=== PATIENT | male | born 1955 | race African-American/Black ===

== ENCOUNTER 2018-04-29 18:45 | Inpatient (IN) | payer OTHER ==
[~2018-04-29] VITALS: Ht 170.2 cm; Wt 64.4 kg
--- NOTE | 2018-04-29 19:27 | NUR ---
MS RN OPENING NOTES: RECEIVED PT ON ROOM AIR AND IS TOLERATING WELL. PT IS A/OX4. PT IN MILD DISTRESS COMPLAINING OF PAIN AT THIS TIME. PT JUST ARRIVED FROM [facility]. PT HAS IV ON L THIGH. BED ALARM ACTIVATED. BED KEPT IN LOW, LOCKED POSITION, AND SIDE RAILS X 2UP. WILL CONTINUE TO MONITOR PT.
--- NOTE | 2018-04-29 19:37 | NUR ---
MS RN NOTES: PRO BUENO AT BEDSIDE.
[2018-04-29] MEDS ORDERED: OMEP20CA10 PO (19:52)
[2018-04-29] MEDS ORDERED: FOLI1TAB16 PO (19:52)
[2018-04-29] MEDS ORDERED: DESO1TAB9 PO (19:52)
[2018-04-29] MEDS ORDERED: THIA100T88 PO (19:52)
[2018-04-29] MEDS ORDERED: MULT1TAB73 PO (19:52)
[2018-04-29] MEDS ORDERED: BENA10TA9 PO (19:52)
[2018-04-29] MEDS ORDERED: GABA-534 PO (19:52)
[2018-04-29] MEDS ORDERED: INSU100V7 SQ (19:52)
[2018-04-29] MEDS ORDERED: AMLO5TAB9 PO (19:52)
[2018-04-29 20:00] VITALS: BP 155/74
[2018-04-29] MEDS ORDERED: Z GUARD REMEDY 2 OZ OINT TP PRN (20:00)
[2018-04-29] MEDS ORDERED: MAGNESIUM HYDROXIDE 30 ML UDC PO PRN (20:00)
[2018-04-29] MEDS ORDERED: DEXTROSE 50%-WATER 50 ML DISP.SYRIN IV PRN (20:00)
[2018-04-29] MEDS ORDERED: MORPHINE SULFATE INJ 2 MG/ML DISP.SYRIN IV PRN (20:00)
[2018-04-29] MEDS ORDERED: ONDANSETRON HCL/PF 4 MG/2 ML VIAL IVP PRN (20:00)
--- NOTE | 2018-04-29 20:49 | NUR ---
MS RN NOTES: SPOKE WITH DR. QUINTERO. INFORMED HIM THAT UNABLE TO PULL OUT MORPHINE D/T OUT OF STOCK. GOT ALTERNATIVE ORDER WELL FOR DILAUDID 0.5MG IV Q4HR PRN FOR SEVERE PAIN.
[2018-04-29] MEDS: IV NS 0.9% 1,000 ML IV PRN (20:54)
--- NOTE | 2018-04-29 20:55 | NUR ---
RN NOTES: CONTACTED LAB TO ASSISTANT MEDIA BUYER MRSA SWAB SPECIMEN
[2018-04-29] MEDS: HYDROCODONE/APAP 5/325MG 1 EACH TABLET PO PRN (20:56)
[2018-04-29] MEDS ORDERED: HYDROMORPHONE 1 MG/1 ML DISP.SYRIN IV PRN (21:00)
--- NOTE | 2018-04-29 21:00 | NUR ---
MS RN NOTES: PT COMPLAINING OF R KNEE AND LOWER BACK PAIN. PT WAS ADMINISTERED NORCO 5 PO. WILL CONTINUE TO MONITOR PT.
[2018-04-29] MEDS: BLOOD SUGAR DIAGNOSTIC 1 EACH STRIP IN SCH (21:24)
[2018-04-29] MEDS: INSULIN REGULAR, HUMAN 100 UNIT/ML 3 ML VIAL SQ PRN (21:26)
--- NOTE | 2018-04-29 21:30 | NUR ---
MS RN NOTES: BLOOD SUGAR WAS 189. 3 UNITS OF INSULIN WAS ADMINISTERED. SNACKS PROVIDED AT BEDSIDE. WILL CONTINUE TO MONITOR,
[2018-04-29] MEDS: HYDROMORPHONE INJ 2 MG/ML DISP.SYRIN IV PRN (22:13)
--- NOTE | 2018-04-29 22:17 | NUR ---
MS RN NOTES: PT STILL COMPLAINING OF 8/10 RIGHT LEG, BACK, AND NECK PAIN. PT WAS ADMINISTERED DILAUDID 0.5MG IV. WILL CONTINUE TO MONITOR PT.
[2018-04-30] VITALS (8 sets, daily range): BP systolic 120–176; BP diastolic 66–83
[2018-04-30] MEDS: HYDROCODONE/APAP 5/325MG 1 EACH TABLET PO PRN ×5 (01:24→21:26)
--- NOTE | 2018-04-30 01:27 | NUR ---
MS RN NOTES: PT COMPLAINING OF R KNEE AND LOWER BACK PAIN 12/02. PT WAS ADMINISTERED NORCO 5 PO. WILL CONTINUE TO MONITOR.
[2018-04-30] MEDS: ZOLPIDEM TARTRATE 5 MG TABLET PO PRN ×2 (01:54→20:38)
--- NOTE | 2018-04-30 01:55 | NUR ---
MS CHACHA NOTES: PT REQUESTING FOR SLEEPING AID. PT WANTS TO BE RELIEVED FROM THE PAIN HE IS HAVING IN HIS BACK, NECK, AND R KNEE/LEG. Addendum: 04/30/18 at 0156 by YANIRA GALEANO RN PT WAS ADMINISTERED AMBIEN 5MG PO. WILL CONTINUE TO MONITOR.
[2018-04-30] MEDS: HYDROMORPHONE INJ 2 MG/ML DISP.SYRIN IV PRN ×6 (02:33→23:35)
--- NOTE | 2018-04-30 02:34 | NUR ---
MS RN NOTES: AFTER BEING REPOSITIONED, PT SAID HIS PAIN CAME BACK 8/10. PT COMPLAINING OF LOWER BACK, NECK, AND R KNEE/LEG PAIN. PT WAS ADMINISTERED DILAUDID 0.5MG VIA IV. WILL CONTINUE TO MONITOR.
[2018-04-30] MEDS: BLOOD SUGAR DIAGNOSTIC 1 EACH STRIP IN SCH ×4 (06:03→21:17)
--- NOTE | 2018-04-30 06:20 | NUR ---
MS RN CLOSING NOTES: ALL NEEDS WERE ATTENDED AND ANTICIPATED FOR. PT KEPT CLEAN, DRY, AND COMFORTABLE. PT ASLEEP AT THIS TIME. PT HAS IV ON L THIGH AND IS BEING INFUSED WITH IV NS AT 75ML/HR. BED ALARM ACTIVATED. PT TO BE ADMINISTERED 3 UNITS OF INSULIN FOR BLOOD SUGAR BEING 194 THIS AM. BED KEPT IN LOW, LOCKED POSITION, AND SIDE RAILS X 2UP. RIGHT DISTAL FEMUR ELEVATED WITH A PILLOW. WILL ENDORSE TO AM NURSE FOR MAX.
[2018-04-30] MEDS: INSULIN REGULAR, HUMAN 100 UNIT/ML 3 ML VIAL SQ PRN ×4 (06:34→21:18)
--- NOTE | 2018-04-30 06:41 | NUR ---
MS RN NOTES: 3 UNITS OF INSULIN WAS ADMINISTERED. ORANGE JUICE PROVIDED AT BEDSIDE. PT ALSO COMPLAINING OF 10/10 LOWER BACK, NECK, R LEG/KNEE PAIN. PT WAS ADMINISTERED DILAUDID 0.5MG VIA IV. WILL ENDORSE TO AM NURSE.
--- NOTE | 2018-04-30 07:13 | NUR ---
MS RN OPENING NOTE RECEIVED PATIENT IN BED. ALERT ORIENTED X4. ON ROOM AIR. TOLERATING WELL. IN NO APPARENT DISTRESS OR DISCOMFORT AT THIS TIME. RESPIRATIONS EVEN AND UNLABORED. PATIENT REPORTS 5/10 PAIN IN RIGHT LEG, PAIN MANAGEMENT INITIATED. ABLE TO COMMUNICATE NEEDS. PATIENT WITH LEFT THIGH 20G IVC WITH FLUIDS RUNNING AT 75ML/HR. RIGHT KNEE EDEMA NON-PITTING DUE TO FRACTURE. PATIENT USES URINAL FOR ELIMINATION. ALL NEEDS ATTENDED, SAFETY MEASURES IN PLACE, BED IN LOW LOCKED POSITION, SIDE RAILS UP X2, CALL LIGHT WITHIN EASY REACH. WILL CONTINUE TO MONITOR.
[2018-04-30] MEDS ORDERED: BLOO-668 IN (07:49)
[2018-04-30] MEDS ORDERED: INSU100V27 SQ (07:49)
[2018-04-30] MEDS: DOCUSATE SODIUM 100 MG CAPSULE PO SCH ×2 (08:34→16:55)
[2018-04-30] MEDS: IV NS 0.9% 1,000 ML IV PRN (11:12)
--- NOTE | 2018-04-30 13:00 | NUR ---
PATIENT REFUSES TO BE TURNED AND REPOSITIONED DUE TO PAIN IN HIS RIGHT LEG. ACCORDING TO THE PATIENT PAIN IS CONTROLLED WITH ORDERED PAIN MEDICATIONS, BUT THE LEG DEVELOPS SEVERE PAIN WHEN HE ATTEMPTS TO REPOSITION OR MOVE IT. OFFLOADED PRESSURE AREAS MUCH POSSIBLE. PATIENT WAS PLACED ON LOW AIRLOSS ISOFLEX MATTRESS TO PREVENT PRESSURE SORES. WILL ATTEMPT TO REPOSITION AND TURN MUCH POSSIBLE PER PROTOCOL. RISKS AND BENEFITS EXPLAINED, PATIENT VERBALIZES UNDERSTANDING. WILL CONTINUE TO MONITOR AT THIS TIME.
[2018-04-30 16:56] LABS: APPEARANCE,URINE CLEAR (CLEAR); BILIRUBIN,URINE 1+ (NEGATIVE); BLOOD, URINE NEGATIVE Ery/uL (NEGATIVE); COLOR,URINE YELLOW (YELLOW); KETONES,URINE TRACE (NEGATIVE); LEUKOCYTE ESTERASE ,URINE NEGATIVE (NEGATIVE); NITRITE, URINE NEGATIVE (NEGATIVE); PROTEIN,URINE NEGATIVE (NEGATIVE); UGLUCOSE 1+ mg/dL (NEGATIVE)
[2018-04-30 17:05] LABS: BACTERIA,URINE Rare /HPF (None Seen); SQUAMOUS EPITHELIAL CELL,UR Rare /HPF (None Seen)
--- NOTE | 2018-04-30 18:23 | NUR ---
MS RN CLOSING NOTE PATIENT IN BED. SLEEPING, EASILY AROUSED WITH VERBAL STIMULI. ORIENTED X4. ON ROOM AIR. TOLERATING WELL. IN NO APPARENT DISTRESS OR DISCOMFORT AT THIS TIME. RESPIRATIONS EVEN AND UNLABORED. PATIENT REPORTS 1-2/10 PAIN IN RIGHT LEG, PAIN MANAGEMENT IMPLEMENTED. ABLE TO COMMUNICATE NEEDS. PATIENT WITH LEFT THIGH 20G IVC WITH FLUIDS RUNNING AT 75ML/HR. RIGHT KNEE EDEMA NON-PITTING DUE TO FRACTURE. PATIENT USES URINAL FOR ELIMINATION. ALL NEEDS ATTENDED, KEPT CLEAN AND COMFORTABLE. TURNED AND REPOSITIONED MUCH ALLOWED BY THE PATIENT. SAFETY MEASURES IN PLACE, BED IN LOW LOCKED POSITION, SIDE RAILS UP X2, CALL LIGHT WITHIN EASY REACH. WILL ENDORSE TO PM NURSE FOR MAX.
--- NOTE | 2018-04-30 19:15 | NUR ---
MS RN OPENING NOTE RECEIVED PATIENT IN BED. ALERT ORIENTED X4. ON ROOM AIR. TOLERATING WELL. RESPIRATIONS EVEN AND UNLABORED. PATIENT REPORTS 8/10 PAIN IN RIGHT LEG, PAIN MANAGEMENT INITIATED. ABLE TO COMMUNICATE NEEDS. PATIENT WITH LEFT THIGH 20G IVC WITH FLUIDS RUNNING AT 75ML/HR. RIGHT KNEE EDEMA, NON-PITTING DUE TO FRACTURE. PATIENT USES URINAL FOR ELIMINATION. SAFETY MEASURES IN PLACE, BED IN LOW LOCKED POSITION, SIDE RAILS UP X2, CALL LIGHT WITHIN EASY REACH. WILL CONTINUE TO MONITOR ACCORDINGLY.
[2018-04-30 20:36] LABS: BASOPHILS % (AUTO) 0.4 % (0.0-2.0); EOSINOPHILS % (AUTO) 0.6 % (0.0-6.0); HEMATOCRIT 32 % (39-51); HEMOGLOBIN 10.9 g/dL (13.5-17.5); LYMPHOCYTES # (AUTO) 1.2 /CMM (0.8-4.8); LYMPHOCYTES % (AUTO) 11.2 % (20.0-44.0); MEAN CORPUSCULAR HGB CONC 34 g/dl (31.0-36.0); MEAN CORPUSCULAR VOLUME 98 fL (80-96); MONOCYTES # (AUTO) 1.6 /CMM (0.1-1.30); MONOCYTES % (AUTO) 14.8 % (2.0-12.0); NEUTROPHILS # (AUTO) 8.1 /CMM (1.8-8.9); PLATELET COUNT (AUTO) 204 /CMM (150-450); RED BLOOD CELL COUNT(AUTO) 3.27 MIL/uL (4.5-6.0)
[2018-04-30 20:48] LABS: CALCIUM, SERUM 9.1 mg/dL (8.5-10.1); CREATININE 0.8 mg/dL (0.6-1.3); PHOSPHORUS 3.8 mg/dL (2.5-4.9); POTASSIUM 4.1 mmol/L (3.5-5.1)
[2018-04-30 20:52] LABS: MAGNESIUM 1.2 mg/dL (1.8-2.4)
--- NOTE | 2018-04-30 21:20 | NUR ---
RN NOTE BSL 187MG/DL. INSULIN 3 UNITS GIVEN PER SLIDING SCALE.
--- NOTE | 2018-04-30 22:53 | NUR ---
RN NOTE CALLED DR. QUINTERO THAT PATIENT HAS HIGH BP, ORDERED BENAZEPRIL 10MG AND NORVASC 5MG ONCE. ORDERS NOTED AND CARRIED OUT.
[2018-04-30] MEDS ORDERED: AMLODIPINE BESYLATE 5 MG TABLET PO ONE (23:00)
[2018-04-30] MEDS ORDERED: BENAZEPRIL HCL 10 MG TABLET PO ONE (23:00)
[2018-05-01] MEDS: HYDROCODONE/APAP 5/325MG 1 EACH TABLET PO PRN ×4 (01:47→20:10)
[2018-05-01 02:00] VITALS: BP 150/67
[2018-05-01] MEDS ORDERED: MAGNESIUM OXIDE 400 MG TABLET PO ONE ×2 (03:30→09:30)
[2018-05-01] MEDS: HYDROMORPHONE INJ 2 MG/ML DISP.SYRIN IV PRN ×4 (03:35→22:50)
[2018-05-01 04:00] VITALS: BP 148/90
[2018-05-01] MEDS: IV NS 0.9% 1,000 ML IV PRN ×2 (05:11→18:25)
[2018-05-01] MEDS: BLOOD SUGAR DIAGNOSTIC 1 EACH STRIP IN SCH ×4 (06:32→21:13)
--- NOTE | 2018-05-01 06:35 | NUR ---
RN NOTES NO INSULIN COVERAGE GIVEN- PATIENT FOR POSSIBLE SURGERY
--- NOTE | 2018-05-01 06:50 | NUR ---
MS RN CLOSING NOTE PATIENT IN BED.ALERT, ORIENTED X 4. ON ROOM AIR, TOLERATING WELL. RESPIRATIONS EVEN AND UNLABORED. ABLE TO COMMUNICATE NEEDS. PATIENT WITH LEFT THIGH 20G IVC WITH FLUIDS RUNNING AT 75ML/HR. PATIENT USES URINAL FOR ELIMINATION. ALL NEEDS ATTENDED TO. KEPT CLEAN AND COMFORTABLE. ALL DUE MEDS GIVEN ORDERED. SAFETY MEASURES IN PLACE, BED IN LOW LOCKED POSITION, SIDE RAILS UP X2, CALL LIGHT WITHIN EASY REACH. WILL ENDORSE MAX TO AM NURSE
[2018-05-01 07:12] LABS: BASOPHILS # (AUTO) 0.1 /CMM (0.0-0.2); BASOPHILS % (AUTO) 0.7 % (0.0-2.0); EOSINOPHILS % (AUTO) 0.8 % (0.0-6.0); HEMATOCRIT 33 % (39-51); HEMOGLOBIN 11.2 g/dL (13.5-17.5); LYMPHOCYTES # (AUTO) 1.4 /CMM (0.8-4.8); LYMPHOCYTES % (AUTO) 14.1 % (20.0-44.0); MEAN CORPUSCULAR HGB CONC 34 g/dl (31.0-36.0); MEAN CORPUSCULAR VOLUME 98 fL (80-96); MONOCYTES # (AUTO) 1.5 /CMM (0.1-1.30); MONOCYTES % (AUTO) 15.4 % (2.0-12.0); NEUTROPHILS # (AUTO) 6.8 /CMM (1.8-8.9); PLATELET COUNT (AUTO) 227 /CMM (150-450); RED BLOOD CELL COUNT(AUTO) 3.31 MIL/uL (4.5-6.0); WHITE BLOOD COUNT (AUTO) 9.9 K/uL (4.3-11.0)
[2018-05-01 07:31] LABS: CALCIUM, SERUM 9.1 mg/dL (8.5-10.1); CREATININE 0.6 mg/dL (0.6-1.3); PHOSPHORUS 3.5 mg/dL (2.5-4.9); POTASSIUM 3.6 mmol/L (3.5-5.1)
--- NOTE | 2018-05-01 07:43 | NUR ---
MS RN Opening Note Received patient awake, resting in bed. Patient alert and oriented x 4, able to make needs known. Respirations even and unlabored, saturating on room air. No acute distress noted and no complaints of pain at this time. Peripheral IV access on left thigh 20 gauge, intact, patent and running NS at 75 mL/hr. Safety and Fall precautions in place: bed in lowest and locked position, side rails up x 2, bed alarm on, call light within reach. Reviewed safety measures and plan of care with patient, verbalized understanding. Will continue to monitor and intervene as needed.
[2018-05-01 08:00] VITALS: BP 141/74
[2018-05-01 08:15] LABS: MAGNESIUM 1.1 mg/dL (1.8-2.4)
[2018-05-01] MEDS: DOCUSATE SODIUM 100 MG CAPSULE PO SCH ×2 (09:18→17:01)
[2018-05-01] MEDS: AMLODIPINE BESYLATE 5 MG TABLET PO SCH (09:18)
[2018-05-01] MEDS: Magnesium 1GM/D5W 100ML PREMIX 100 ML IV SCH ×2 (11:58→13:42)
[2018-05-01] MEDS: GABAPENTIN 300 MG CAPSULE PO SCH ×2 (12:27→17:01)
[2018-05-01] MEDS: INSULIN REGULAR, HUMAN 100 UNIT/ML 3 ML VIAL SQ PRN ×2 (12:27→21:12)
[2018-05-01 16:00] VITALS: BP_SYST 141; BP_SYST 150; BP_SYST 151; BP_DIAS 48; BP_DIAS 74
--- NOTE | 2018-05-01 19:00 | NUR ---
MS RN Closing Note Patient currently awake, resting in bed. Patient alert and oriented x 4, able to make needs known. Respirations even and unlabored, saturating on room air. No acute distress noted and no complaints of pain at this time. Peripheral IV access on left thigh 20 gauge, intact, patent and running NS at 75 mL/hr. Medication reconciliation completed, all medications given as ordered. Pain managed with PRN medications as ordered. Safety and Fall precautions in place: bed in lowest and locked position, side rails up x 2, bed alarm on, call light within reach. Reviewed safety measures and plan of care with patient, verbalized understanding. Patient to have ORIF of the right femur on Tuesday, 05/[address] Arcos, consent form signed and placed in chart. Patient cleared by cardio and medical for surgery. Will endorse to shift engineer RN for continuity of care.
[2018-05-01 20:00] VITALS: BP 147/72
--- NOTE | 2018-05-01 20:45 | NUR ---
MS RN NOTES RECEIVED PATIENT AWAKE IN BED AND WATCHING TV WITH NO DISTRESS NOTED. CALL LIGHT WITHIN REACH. NO C/O PAIN OR DISCOMFORT. PERIPHERAL IV INTACT AND PATENT. BED IN LOW LOCK SETTING. ALL BELONGINGS KEPT NEAR BEDSIDE. WILL CONTINUE TO MONITOR.
[2018-05-01] MEDS: ZOLPIDEM TARTRATE 5 MG TABLET PO PRN (21:02)
[2018-05-02] MEDS: HYDROCODONE/APAP 5/325MG 1 EACH TABLET PO PRN ×5 (01:38→22:04)
[2018-05-02 06:22] LABS: BASOPHILS # (AUTO) 0.1 /CMM (0.0-0.2); BASOPHILS % (AUTO) 0.6 % (0.0-2.0); EOSINOPHILS % (AUTO) 0.7 % (0.0-6.0); HEMATOCRIT 34 % (39-51); HEMOGLOBIN 11.4 g/dL (13.5-17.5); LYMPHOCYTES # (AUTO) 1.4 /CMM (0.8-4.8); LYMPHOCYTES % (AUTO) 9.9 % (20.0-44.0); MEAN CORPUSCULAR HGB CONC 34 g/dl (31.0-36.0); MEAN CORPUSCULAR VOLUME 98 fL (80-96); MONOCYTES # (AUTO) 2.3 /CMM (0.1-1.30); NEUTROPHILS # (AUTO) 9.8 /CMM (1.8-8.9); NEUTROPHILS % (AUTO) 71.8 % (43.0-81.0); PLATELET COUNT (AUTO) 217 /CMM (150-450); RED BLOOD CELL COUNT(AUTO) 3.43 MIL/uL (4.5-6.0); WHITE BLOOD COUNT (AUTO) 13.7 K/uL (4.3-11.0)
[2018-05-02] MEDS: INSULIN REGULAR, HUMAN 100 UNIT/ML 3 ML VIAL SQ PRN ×4 (06:23→21:27)
[2018-05-02 06:49] LABS: CALCIUM, SERUM 9.3 mg/dL (8.5-10.1); CREATININE 0.6 mg/dL (0.6-1.3); POTASSIUM 3.8 mmol/L (3.5-5.1)
[2018-05-02 06:50] LABS: MAGNESIUM 1.4 mg/dL (1.8-2.4); PHOSPHORUS 3.6 mg/dL (2.5-4.9)
--- NOTE | 2018-05-02 06:52 | NUR ---
MS RN CLOSING NOTES PATIENT AWAKE IN BED AND WATCHING TV WITH NO DISTRESS NOTED. CALL LIGHT WITHIN REACH. NO FURTHER C/O PAIN OR DISCOMFORT. PATIENT WITH EPISODES OF TRYING TO GET OUT OF BED WITHOUT ASSISTANCE. BED ALARM ON AND FUNCTIONING PROPERLY. BED IN LOW LOCK SETTING. ALL BELONGINGS KEPT NEAR BEDSIDE. WILL ENDORSE TO ONCOMING SHIFT.
--- NOTE | 2018-05-02 06:58 | NUR ---
PATIENT PULLED OUT PERIPHERAL IV. ATTEMPTS MADE TO REINSERT IV WITH ACCUVEIN BUT UNSUCCESSFUL X3. WILL ENDORSE TO ONCOMING SHIFT.
--- NOTE | 2018-05-02 07:30 | NUR ---
MS RN Opening Note Received patient awake, resting in bed. Patient alert and oriented x 4, able to make needs known. Respirations even and unlabored, saturating on room air. No acute distress noted and no complaints of pain at this time. Peripheral IV access on left thigh 20 gauge pulled out on overnight stocker, will notify MD and request midline insertion. Safety and Fall precautions in place: bed in lowest and locked position, side rails up x 2, bed alarm on, call light within reach. Reviewed safety measures and plan of care with patient, verbalized understanding. Will continue to monitor and intervene as needed.
[2018-05-02] MEDS: BLOOD SUGAR DIAGNOSTIC 1 EACH STRIP IN SCH ×4 (07:44→21:17)
[2018-05-02 08:00] VITALS: BP 160/74
[2018-05-02] MEDS: PANTOPRAZOLE 40 MG TABLET.DR PO SCH (08:07)
[2018-05-02] MEDS: THIAMINE HCL 100 MG TABLET PO SCH (08:07)
[2018-05-02] MEDS: DOCUSATE SODIUM 100 MG CAPSULE PO SCH ×2 (08:07→17:01)
[2018-05-02] MEDS: AMLODIPINE BESYLATE 5 MG TABLET PO SCH (08:08)
[2018-05-02] MEDS: BENAZEPRIL HCL 10 MG TABLET PO SCH (08:08)
[2018-05-02] MEDS: GABAPENTIN 300 MG CAPSULE PO SCH ×3 (08:08→17:01)
[2018-05-02] MEDS: FOLIC ACID 1 MG TABLET PO SCH (08:08)
[2018-05-02] MEDS ORDERED: AMLODIPINE BESYLATE 5 MG TABLET PO SCH (09:00)
[2018-05-02 09:13] VITALS: BP 154/70
[2018-05-02] MEDS: Magnesium 1GM/D5W 100ML PREMIX 100 ML IV SCH ×8 (09:35→18:10)
[2018-05-02] MEDS: HYDROMORPHONE INJ 2 MG/ML DISP.SYRIN IV PRN ×2 (13:55→20:42)
--- NOTE | 2018-05-02 14:00 | NUR ---
IV Nurse at bedside for midline insertion procedure.
[2018-05-02] MEDS ORDERED: IOHEXOL-350 100 ML VIAL IV ONE (14:50)
[2018-05-02] MEDS ORDERED: IV NS 0.9% 250 ML IV ONE (14:51)
[2018-05-02] MEDS ORDERED: CT SWABBABLE VALVE TRANS SET 1 EA INFUS.SET MC ONE (14:51)
[2018-05-02 16:00] VITALS: BP 132/61
--- NOTE | 2018-05-02 19:33 | NUR ---
MS RN Closing Note Patient currently awake, resting in bed. Patient alert and oriented x 3-4, able to make needs known. Respirations even and unlabored, saturating on room air. No acute distress noted and no complaints of pain at this time. Pain well controlled with PRN medications as needed; all other due medications given as ordered. Right upper arm midline 18#, patent, intact and running NS at 75 mL/hr. Patient to be NPO at midnight for R ORIF in AM (05/03/18) with Dr. Arcos. Consent forms signed and in chart. Safety and Fall precautions in place: bed in lowest and locked position, side rails up x 2, bed alarm on, call light within reach. Reviewed safety measures and plan of care with patient, verbalized understanding. Will endorse to material handler 2nd shift RN for continuity of care.
[2018-05-02] MEDS ORDERED: FEE PK DOSING 1 MIN EA MC ONE (19:39)
[2018-05-02 20:00] VITALS: BP 118/61
[2018-05-02] MEDS ORDERED: VANCOMYCIN 1 GM in IV D5W 250 ML IV ONE (20:00)
[2018-05-02 20:21] LABS: APPEARANCE,URINE CLEAR (CLEAR); BILIRUBIN,URINE NEGATIVE (NEGATIVE); BLOOD, URINE NEGATIVE Ery/uL (NEGATIVE); COLOR,URINE YELLOW (YELLOW); KETONES,URINE 1+ (NEGATIVE); LEUKOCYTE ESTERASE ,URINE NEGATIVE (NEGATIVE); NITRITE, URINE NEGATIVE (NEGATIVE); PH,URINE 6.5 (5.0-8.0); PROTEIN,URINE NEGATIVE (NEGATIVE); UGLUCOSE NEGATIVE (NEGATIVE)
[2018-05-02 20:34] LABS: BACTERIA,URINE None seen /HPF (None Seen); RBC,URINE 0-2 /HPF (0-2); SQUAMOUS EPITHELIAL CELL,UR Few /HPF (None Seen); WBC,URINE 0-2 /HPF (0-3)
--- NOTE | 2018-05-02 20:47 | NUR ---
MS RN NOTES: PT COMPLAINING OF 8/10 R KNEE PAIN. PT WAS ADMINISTERED DILAUDID VIA IV. WILL CONTINUE TO MONITOR. INFORMED PT THAT AFTER MIDNIGHT HE IS TO BE NPO FOR PROCEDURE TOMORROW AM.
[2018-05-02] MEDS: CEFTRIAXONE 1 G in IV D5W 50 ML IV SCH (21:10)
--- NOTE | 2018-05-02 21:29 | NUR ---
MS RN NOTES: BLOOD SUGAR THIS PM WAS 215. 4 UNITS OF INSULIN WAS ADMINISTERED. JELLO AND SNACKS GIVEN TO PT AND AT BEDSIDE.
--- NOTE | 2018-05-02 22:04 | NUR ---
MS RN NOTES: PT STILL COMPLAINING OF 7/10 R KNEE PAIN. PT SAID DILAUDID DID NOT WORK TOO LONG. PT WAS ADMINISTERED NORCO 5 PO. WILL CONTINUE TO MONITOR.
[2018-05-03] MEDS: HYDROMORPHONE INJ 2 MG/ML DISP.SYRIN IV PRN ×6 (02:17→22:46)
--- NOTE | 2018-05-03 02:20 | NUR ---
MS RN NOTES: PT COMPLAINING OF 9/10 R KNEE, NECK, AND BACK PAIN. PT WAS ADMINISTERED DILAUDID VIA IV. WILL CONTINUE TO MONITOR .
[2018-05-03] MEDS: VANCOMYCIN 0.75 GM in IV D5W 250 ML IV SCH ×3 (03:19→20:47)
[2018-05-03 05:50] VITALS: BP 154/74
[2018-05-03] MEDS: BLOOD SUGAR DIAGNOSTIC 1 EACH STRIP IN SCH (06:16)
[2018-05-03] MEDS: IV NS 0.9% 1,000 ML IV PRN (06:26)
[2018-05-03] MEDS: INSULIN REGULAR, HUMAN 100 UNIT/ML 3 ML VIAL SQ PRN ×3 (06:41→17:32)
--- NOTE | 2018-05-03 06:41 | NUR ---
MS RN NOTES: PT IS FOR POSSIBLE SURGERY TODAY HOWEVER NOT ON SCHEDULE. BLOOD SUGAR THIS AM WAS 220. NO INSULIN WAS ADMINISTERED PT IS NPO. WILL ENDORSE TO AM NURSE FOR MAX.
[2018-05-03 07:26] LABS: BASOPHILS # (AUTO) 0.1 /CMM (0.0-0.2); BASOPHILS % (AUTO) 0.8 % (0.0-2.0); EOSINOPHILS % (AUTO) 1.4 % (0.0-6.0); HEMATOCRIT 31 % (39-51); HEMOGLOBIN 10.5 g/dL (13.5-17.5); LYMPHOCYTES # (AUTO) 1.2 /CMM (0.8-4.8); LYMPHOCYTES % (AUTO) 12.7 % (20.0-44.0); MEAN CORPUSCULAR HGB CONC 34 g/dl (31.0-36.0); MEAN CORPUSCULAR VOLUME 98 fL (80-96); MONOCYTES % (AUTO) 20.6 % (2.0-12.0); NEUTROPHILS # (AUTO) 6.1 /CMM (1.8-8.9); NEUTROPHILS % (AUTO) 64.5 % (43.0-81.0); PLATELET COUNT (AUTO) 314 /CMM (150-450); RED BLOOD CELL COUNT(AUTO) 3.16 MIL/uL (4.5-6.0); WHITE BLOOD COUNT (AUTO) 9.5 K/uL (4.3-11.0)
[2018-05-03] MEDS: PANTOPRAZOLE 40 MG TABLET.DR PO SCH (07:30)
--- NOTE | 2018-05-03 07:30 | NUR ---
RN MS NOTES PT IN BED, AWAKE, ALERT AND ORIENTED, PAIN MEDICATION GIVEN BY EARTHMOVING PLANT OPERATOR NURSE FOR RIGHT KNEE PAIN, WILL REASSESS NEEDED, NOT IN DISTRESS, IV FLUIDS INFUSING WELL, CALL LIGHT WITHIN REACH, NEEDS ATTENDED.
--- NOTE | 2018-05-03 07:46 | NUR ---
MS RN CLOSING NOTES: ALL NEEDS WERE ATTENDED AND ANTICIPATED FOR. PT KEPT CLEAN, DRY, AND COMFORTABLE. PT RESTING IN BED COMFORTABLY. MIDLINE REMAINS INTACT AND IS BEING INFUSED WITH IV NS AT 75ML/HR. PT HAS BEEN NPO SINCE MIDNIGHT. PT FOR POSSIBLE SX THIS AM. BED ALARM ACTIVATED. BED KEPT IN LOW, LOCKED POSITION, AND SIDE RAILS X 2UP. ENDORSED TO AM NURSE FOR MAX.
[2018-05-03 08:00] VITALS: BP 138/67
[2018-05-03 08:08] LABS: CALCIUM, SERUM 8.8 mg/dL (8.5-10.1); CREATININE 0.6 mg/dL (0.6-1.3); MAGNESIUM 1.4 mg/dL (1.8-2.4); PHOSPHORUS 3.7 mg/dL (2.5-4.9); POTASSIUM 3.5 mmol/L (3.5-5.1)
[2018-05-03] MEDS: GABAPENTIN 300 MG CAPSULE PO SCH ×3 (09:00→16:31)
[2018-05-03] MEDS: BENAZEPRIL HCL 10 MG TABLET PO SCH (09:00)
[2018-05-03] MEDS: THIAMINE HCL 100 MG TABLET PO SCH (09:00)
[2018-05-03] MEDS: AMLODIPINE BESYLATE 5 MG TABLET PO SCH (09:00)
[2018-05-03] MEDS: FOLIC ACID 1 MG TABLET PO SCH (09:00)
[2018-05-03] MEDS: DOCUSATE SODIUM 100 MG CAPSULE PO SCH ×2 (09:00→16:31)
[2018-05-03] MEDS: HYDROCODONE/APAP 5/325MG 1 EACH TABLET PO PRN ×4 (09:38→22:07)
[2018-05-03] MEDS ORDERED: DEXTROSE 50%-WATER 50 ML DISP.SYRIN IV PRN (10:00)
[2018-05-03] MEDS: Magnesium 1GM/D5W 100ML PREMIX 100 ML IV SCH ×4 (10:35→15:11)
[2018-05-03] MEDS: BLOOD SUGAR DIAGNOSTIC 1 EACH STRIP VI SCH ×3 (12:25→22:05)
--- NOTE | 2018-05-03 12:31 | NUR ---
RN MS NOTES PT IN BED, AWAKE, ALERT AND ORIENTED, PAIN MEDS GIVEN ORDERED, SEEN BY TOO MAST, PLAN OF CARE DISCUSSED WITH PT, VERBALIZED UNDERSTANDING.
[2018-05-03 16:00] VITALS: BP 122/81
[2018-05-03] MEDS: LACTOBACILLUS RHAMNOSUS GG 1 EACH CAP.SPRINK PO SCH (16:31)
--- NOTE | 2018-05-03 17:27 | NUR ---
RN MS NOTES RIGHT KNEE FLUID ASPIRATION DONE BY DR. DAVILA AT BEDSIDE, PT TOLERATED PROCEDURE WELL, NO BLEEDING NOTED, SPECIMEN SENT TO LAB.
--- NOTE | 2018-05-03 18:55 | NUR ---
RN MS NOTES PT IN BED, AWAKE, ALERT AND ORIENTED, PAIN MEDICATION GIVEN FOR PAIN MANAGEMENT, IV FLUIDS INFUSING WELL, CALL LIGHT WITHIN REACH, ASSISTED IN REPOSITIONING, PM MEDS GIVEN, ALL NEEDS ATTENDED.
--- NOTE | 2018-05-03 19:15 | NUR ---
MS RN NOTES RECEIVED ON BED A/O X3,BREATHING REGULAR,NOT IN ANY FORM OF DISTRESS.WITH IVF NS AT 75ML/HR RATE INFUSING ON RIGHT UPPER ARM MIDLINE.C/O PAIN VIA RIGHT FEMUR,NO PLAN FOR SURGERY YET,AWAITING CYTOLOGY OF FLUID ASPIRATED ON RIGHT KNEE.BED ON LOWEST POSITION AND LOCKED.CALL LIGHT IN REACH,NEEDS ANTICIPATED.
[2018-05-03] MEDS: CEFTRIAXONE 1 G in IV D5W 50 ML IV SCH (19:49)
[2018-05-03 20:00] VITALS: BP_SYST 139; BP_DIAS 60; BP_DIAS 64
--- NOTE | 2018-05-03 20:41 | NUR ---
MS RN NOTES VANCO TROUGH 9,AWAITING FOR PHARMACY TO DELIVER DOSE OF VANCOMYCIN.
--- NOTE | 2018-05-03 22:00 | NUR ---
MS RN NOTES ACCU-CHECK BLOOD SUGAR CHECK 246,COVERED WITH HUMULIN 6 UNITS PER SLIDING SCALE.SNACKS PROVIDED AT BEDSIDE.
--- NOTE | 2018-05-03 22:02 | NUR ---
MS RN NOTES PAIN MANAGEMENT C/O PAIN ON THE RIGHT KNEE 7/10 ON PAIN SCALE,MEDICATED WITH NORCO 5/325MG,1 TAB PO ORDERED.
[2018-05-03] MEDS: *INSULIN REGULAR(HUMULIN R)HUM 100 UNIT/ML VIAL SQ PRN (22:08)
--- NOTE | 2018-05-04 02:00 | NUR ---
MS RN NOTES AWAKE,C/O RIGHT KNEE PAIN 6/10 0N PAIN SCALE,MEDICATED WITH NORCO 5/325MG,1 TAB PO ORDERED.
[2018-05-04] MEDS: HYDROCODONE/APAP 5/325MG 1 EACH TABLET PO PRN ×3 (02:01→10:39)
[2018-05-04] MEDS: IV NS 0.9% 1,000 ML IV PRN (02:08)
[2018-05-04] MEDS: HYDROMORPHONE INJ 2 MG/ML DISP.SYRIN IV PRN ×6 (03:10→23:58)
--- NOTE | 2018-05-04 03:10 | NUR ---
MS RN NOTES NORCO NOT EFFECTIVE FOR HIS PAIN,DILAUDID 0.5MG IV GIVEN FOR PAIN 12/02.
[2018-05-04] MEDS: VANCOMYCIN 0.75 GM in IV D5W 250 ML IV SCH ×3 (04:04→20:20)
--- NOTE | 2018-05-04 06:00 | NUR ---
MS RN NOTES ACCU CHECK BLOOD SUGAR CHECK 158,WILL COVER WITH HUMULIN R PER SLIDING SCALE.
[2018-05-04] MEDS: BLOOD SUGAR DIAGNOSTIC 1 EACH STRIP VI SCH ×4 (06:12→22:06)
--- NOTE | 2018-05-04 06:19 | NUR ---
MS RN NOTES AWAKE,C/O RIGHT HIP PAIN,MEDICATED WITH NORCO 5/325MG,1 TAB PO ORDERED AND PER PATIENT REQUEST.
--- NOTE | 2018-05-04 07:00 | NUR ---
MS RN NOTES SLEPT WITH INTERVALS,PO PAIN PILL NOT SO EFFECTIVE.IVF INFUSING.AWAITING SURGICAL INTERVENTION ON RIGHT HIP WHEN FLUID ASPIRATION ON RIGHT HIP RESULT IN.IN NO ACUTE DISTRESS.WILL ENDORSE TO DAY NURSE FOR MAX.
--- NOTE | 2018-05-04 07:30 | NUR ---
RN MS NOTES PT IN BED, AWAKE, ALERT AND ORIENTED, WITH COMPLAINT OF RIGHT KNEE PAIN, IV FLUIDS INFUSING WELL, CALL LIGHT WITHIN REACH, KEPT COMFORTABLE AND LAST REPAIRER BED.
[2018-05-04 07:50] LABS: BASOPHILS # (AUTO) 0.1 /CMM (0.0-0.2); EOSINOPHILS % (AUTO) 2.4 % (0.0-6.0); HEMATOCRIT 30 % (39-51); HEMOGLOBIN 10.5 g/dL (13.5-17.5); LYMPHOCYTES # (AUTO) 1.6 /CMM (0.8-4.8); LYMPHOCYTES % (AUTO) 18.6 % (20.0-44.0); MEAN CORPUSCULAR HGB CONC 35 g/dl (31.0-36.0); MEAN CORPUSCULAR VOLUME 98 fL (80-96); MONOCYTES # (AUTO) 1.7 /CMM (0.1-1.30); MONOCYTES % (AUTO) 19.5 % (2.0-12.0); NEUTROPHILS # (AUTO) 5.2 /CMM (1.8-8.9); NEUTROPHILS % (AUTO) 58.5 % (43.0-81.0); PLATELET COUNT (AUTO) 338 /CMM (150-450); WHITE BLOOD COUNT (AUTO) 8.9 K/uL (4.3-11.0)
[2018-05-04 08:00] VITALS: BP 144/76
[2018-05-04 08:12] LABS: CREATININE 0.7 mg/dL (0.6-1.3); MAGNESIUM 1.4 mg/dL (1.8-2.4); PHOSPHORUS 4.2 mg/dL (2.5-4.9); POTASSIUM 3.8 mmol/L (3.5-5.1)
[2018-05-04 08:32] LABS: BAND % (MANUAL) 2 % (0.0-5.0); EOSINOPHILS % (MANUAL) 2 % (0-4); LYMPHOCYTES % (MANUAL) 23 % (16-48); MONOCYTES % (MANUAL) 19 % (0-11.0); NEUTROPHILS % (MANUAL) 54 (42-76)
[2018-05-04] MEDS: DOCUSATE SODIUM 100 MG CAPSULE PO SCH ×2 (09:06→18:07)
[2018-05-04] MEDS: THIAMINE HCL 100 MG TABLET PO SCH (09:06)
[2018-05-04] MEDS: FOLIC ACID 1 MG TABLET PO SCH (09:06)
[2018-05-04] MEDS: LACTOBACILLUS RHAMNOSUS GG 1 EACH CAP.SPRINK PO SCH ×2 (09:06→18:07)
[2018-05-04] MEDS: BENAZEPRIL HCL 10 MG TABLET PO SCH (09:07)
[2018-05-04] MEDS: AMLODIPINE BESYLATE 5 MG TABLET PO SCH (09:07)
[2018-05-04] MEDS: PANTOPRAZOLE 40 MG TABLET.DR PO SCH (09:07)
[2018-05-04] MEDS: GABAPENTIN 300 MG CAPSULE PO SCH ×3 (09:07→18:07)
[2018-05-04] MEDS: INSULIN REGULAR, HUMAN 100 UNIT/ML 3 ML VIAL SQ PRN ×3 (09:09→18:14)
[2018-05-04] MEDS: Magnesium 1GM/D5W 100ML PREMIX 100 ML IV SCH ×4 (11:04→18:06)
--- NOTE | 2018-05-04 13:00 | NUR ---
RN MS NOTES PT IN BED, AWAKE, PAIN MEDS GIVEN ORDERED FOR PAIN MANAGEMENT, ASSISTED WITH MEALS, KEPT CLEAN, DRY AND COMFORTABLE, TOLERATING CURRENT DIET WELL.
[2018-05-04 13:44] VITALS: BP 141/82
[2018-05-04 16:00] VITALS: BP 134/69
[2018-05-04] MEDS: HYDROCODONE/APAP 10/325MG 1 EA TABLET PO PRN ×2 (18:07→22:05)
--- NOTE | 2018-05-04 19:00 | NUR ---
RN MS NOTES PT IN BED, AWAKE, ALERT AND ORIENTED, PAIN MEDICATION GIVEN FOR PAIN MANAGEMENT, IV FLUIDS INFUSING WELL, CALL LIGHT WITHIN REACH, ASSISTED IN TURNING AND REPOSITIONING, PM MEDS GIVEN, ALL NEEDS ATTENDED.
--- NOTE | 2018-05-04 19:20 | NUR ---
MS RN NOTES RECEIVED RESTING COMFORTABLY ON BED,PAIN TOLERABLE AT THE MOMENT.ON RIGHT SIDE POSITION,REFUSED TO BE REPOSITION ON LEFT SIDE.IVF INFUSING WELL VIA IV PUMP O RIGHT UPPER ARM MIDLINE.CALL LIGHT IN REACH,NEEDS ANTICIPATED.
[2018-05-04 19:49] VITALS: BP 138/55
[2018-05-04] MEDS: CEFTRIAXONE 1 G in IV D5W 50 ML IV SCH (19:52)
[2018-05-04 20:00] VITALS: BP 138/55
--- NOTE | 2018-05-04 20:00 | NUR ---
MS RN NOTES VANCO THROUGH LEVEL 12,DUE VANCOMYCIN DOSE ADMINISTERED
--- NOTE | 2018-05-04 20:04 | NUR ---
MS RN NOTES C/O RIGHT HIP PAIN 8/10 ON PAIN SCALE,MEDICATED WITH DILAUDID 0.5MG IV ORDERED.
--- NOTE | 2018-05-04 22:00 | NUR ---
MS RN NOTES ACCU-CHECK BLOOD SUGAR CHECK 359,COVERED WITH HUMULIN R 10 UNITS ALONG WITH LANTUS 8UNITS ORDERED.
--- NOTE | 2018-05-04 22:05 | NUR ---
MS RN NOTES SNACKS PROVIDED AT BEDSIDE.
--- NOTE | 2018-05-04 22:05 | NUR ---
MS RN NOTES WITH MODERATE PAIN THIS TIME SAME AREA,MEDICATED WITH NORCO 10/325,1 TAB PO FOR PAIN 10/02.
[2018-05-04] MEDS: INSULIN GLARGINE, 100 UNIT/ML CARTRIDGE SQ SCH (22:21)
[2018-05-04] MEDS: *INSULIN REGULAR(HUMULIN R)HUM 100 UNIT/ML VIAL SQ PRN (22:22)
--- NOTE | 2018-05-04 23:58 | NUR ---
MS RN NOTES PAIN MANAGEMENT AWAKE,MOANS IN PAIN WITH FACIAL GRIMACE NOTED,MEDICATED WITH DILAUDID 0.5MG IV ORDERED FOR PAIN SCALE OF 8/10.
[2018-05-05] MEDS: IV NS 0.9% 1,000 ML IV PRN (01:47)
[2018-05-05] MEDS: HYDROCODONE/APAP 10/325MG 1 EA TABLET PO PRN ×3 (02:01→18:07)
--- NOTE | 2018-05-05 02:01 | NUR ---
MS RN NOTES STILL IN PAIN,MEDICATED WITH NORCO 10/325MG.1TAB PO ORDERED.
[2018-05-05] MEDS: VANCOMYCIN 0.75 GM in IV D5W 250 ML IV SCH ×3 (04:03→20:42)
[2018-05-05] MEDS: HYDROMORPHONE INJ 2 MG/ML DISP.SYRIN IV PRN ×5 (05:17→23:58)
--- NOTE | 2018-05-05 05:17 | NUR ---
MS RN NOTES BARELY SLEEP,CLAIMED HES IN PAIN WITH FACIAL GRIMACE NOTED,MEDICATED WITH DILAUDID 0.5MG IV ORDERED.
--- NOTE | 2018-05-05 05:30 | NUR ---
MS RN NOTES ACCU-CHECK BLOOD SUGAR CHECK 303 MG/DL,WILL COVER WITH HUMULIN R 12 UNITS PER SLIDING SCALE
[2018-05-05] MEDS: BLOOD SUGAR DIAGNOSTIC 1 EACH STRIP VI SCH ×4 (05:32→21:40)
--- NOTE | 2018-05-05 07:01 | NUR ---
MS RN NOTES STILL WITH ON AND OFF RIGHT HIP PAIN MANAGE WITH NORCO 10 AND DILAUDID 0.5 MG IV.REPOSITION SELF,IN NO ACUTE DISTRESS.WILL ENDORSE TO DAY NURSE FOR MAX.
[2018-05-05 07:45] LABS: BASOPHILS # (AUTO) 0.1 /CMM (0.0-0.2); EOSINOPHILS % (AUTO) 2.1 % (0.0-6.0); HEMATOCRIT 30 % (39-51); HEMOGLOBIN 10.2 g/dL (13.5-17.5); LYMPHOCYTES # (AUTO) 1.5 /CMM (0.8-4.8); LYMPHOCYTES % (AUTO) 17.8 % (20.0-44.0); MEAN CORPUSCULAR HGB CONC 34 g/dl (31.0-36.0); MEAN CORPUSCULAR VOLUME 97 fL (80-96); MONOCYTES # (AUTO) 1.7 /CMM (0.1-1.30); MONOCYTES % (AUTO) 21.2 % (2.0-12.0); NEUTROPHILS # (AUTO) 4.7 /CMM (1.8-8.9); NEUTROPHILS % (AUTO) 57.9 % (43.0-81.0); PLATELET COUNT (AUTO) 378 /CMM (150-450); RED BLOOD CELL COUNT(AUTO) 3.05 MIL/uL (4.5-6.0); WHITE BLOOD COUNT (AUTO) 8.2 K/uL (4.3-11.0)
[2018-05-05 07:54] LABS: CALCIUM, SERUM 8.7 mg/dL (8.5-10.1); CREATININE 0.6 mg/dL (0.6-1.3); MAGNESIUM 1.5 mg/dL (1.8-2.4); PHOSPHORUS 4.4 mg/dL (2.5-4.9); POTASSIUM 3.9 mmol/L (3.5-5.1)
[2018-05-05 08:00] VITALS: BP 145/70
--- NOTE | 2018-05-05 08:00 | NUR ---
MS RN RECEIVED ON BED,AWAKE,ALERT,ORIENTED X3,NOT IN ANY FORM OF DISTRESS, RESPIRATIONS EVEN AND UNLABORED,NO SOB NOTED, LUNGS ARE CLEAR. ABDOMEN SOFT, POSITIVE BOWEL SOUNDS,DENIES PAIN AT THIS TIME,ALL NEEDS ATTENDED.
[2018-05-05] MEDS: DOCUSATE SODIUM 100 MG CAPSULE PO SCH ×2 (09:35→18:06)
[2018-05-05] MEDS: PANTOPRAZOLE 40 MG TABLET.DR PO SCH (09:35)
[2018-05-05] MEDS: BENAZEPRIL HCL 10 MG TABLET PO SCH (09:35)
[2018-05-05] MEDS: GABAPENTIN 300 MG CAPSULE PO SCH ×3 (09:36→18:06)
[2018-05-05] MEDS: AMLODIPINE BESYLATE 5 MG TABLET PO SCH (09:36)
[2018-05-05] MEDS: FOLIC ACID 1 MG TABLET PO SCH (09:36)
[2018-05-05] MEDS: THIAMINE HCL 100 MG TABLET PO SCH (09:36)
[2018-05-05] MEDS: LACTOBACILLUS RHAMNOSUS GG 1 EACH CAP.SPRINK PO SCH ×2 (09:36→18:06)
--- NOTE | 2018-05-05 09:50 | NUR ---
MS CHACHA BREAKFAST SERVED,DUE MEDS GIVEN BY STUDENTS, TOLERATED WELL.
[2018-05-05] MEDS: Magnesium 1GM/D5W 100ML PREMIX 100 ML IV SCH ×2 (10:32→12:35)
[2018-05-05] MEDS: INSULIN REGULAR, HUMAN 100 UNIT/ML 3 ML VIAL SQ PRN ×2 (12:36→18:08)
[2018-05-05 16:00] VITALS: BP 122/62
--- NOTE | 2018-05-05 17:17 | NUR ---
MS RN ON BED,NO DISTRESS NOTED.
--- NOTE | 2018-05-05 19:30 | NUR ---
RN OPENING NOTES PT AWAKE AND RESTING IN BED. PT COMPLAINS OF RIGHT HIP/KNEE PAIN. NO SOB OR DISTRESS AT THIS TIME. WILL ADDRESS PAIN MANAGEMENT. PT HAS A RIGHT UPPER ARM MIDLINE #18 RUNNING NS @ 75ML/HR. SAFETY PRECAUTIONS IN PLACE, BED IN LOWEST LOCKED POSITION, X2 SIDE RAILS UP AND CALL LIGHT WITHIN REACH. WILL CONTINUE TO MONITOR.
[2018-05-05] MEDS: CEFTRIAXONE 1 G in IV D5W 50 ML IV SCH (19:51)
[2018-05-05 20:00] VITALS: BP 135/52
[2018-05-05] MEDS: *INSULIN REGULAR(HUMULIN R)HUM 100 UNIT/ML VIAL SQ PRN (21:41)
[2018-05-05] MEDS: INSULIN GLARGINE, 100 UNIT/ML CARTRIDGE SQ SCH (21:42)
[2018-05-06] MEDS: IV NS 0.9% 1,000 ML IV PRN ×2 (00:02→16:49)
[2018-05-06] MEDS: HYDROCODONE/APAP 10/325MG 1 EA TABLET PO PRN ×4 (04:01→23:53)
[2018-05-06] MEDS: VANCOMYCIN 0.75 GM in IV D5W 250 ML IV SCH ×2 (04:01→11:28)
--- NOTE | 2018-05-06 06:05 | NUR ---
RN CLOSING NOTES PT AWAKE AND RESTING IN BED. NO COMPLAINTS OF PAIN, SOB OR DISTRESS AT THIS TIME. PT GIVEN NORCO AND DILAUDID TO ADDRESS RIGHT HIP PAIN. PT HAS A RIGHT UPPER ARM MIDLINE #18 RUNNING NS @ 75ML/HR. SAFETY PRECAUTIONS IN PLACE, BED IN LOWEST LOCKED POSITION, X2 SIDE RAILS UP AND CALL LIGHT WITHIN REACH. WILL ENDORSE TO DAY SHIFT NURSE FOR CONTINUITY OF CARE.
[2018-05-06] MEDS: BLOOD SUGAR DIAGNOSTIC 1 EACH STRIP VI SCH ×4 (06:43→22:07)
[2018-05-06] MEDS: INSULIN REGULAR, HUMAN 100 UNIT/ML 3 ML VIAL SQ PRN ×3 (06:45→17:27)
[2018-05-06 07:28] LABS: BASOPHILS # (AUTO) 0.1 /CMM (0.0-0.2); BASOPHILS % (AUTO) 1.1 % (0.0-2.0); CALCIUM, SERUM 8.9 mg/dL (8.5-10.1); CREATININE 0.7 mg/dL (0.6-1.3); EOSINOPHILS % (AUTO) 2.4 % (0.0-6.0); HEMATOCRIT 32 % (39-51); HEMOGLOBIN 10.7 g/dL (13.5-17.5); LYMPHOCYTES # (AUTO) 1.6 /CMM (0.8-4.8); MAGNESIUM 1.8 mg/dL (1.8-2.4); MEAN CORPUSCULAR HGB CONC 33 g/dl (31.0-36.0); MEAN CORPUSCULAR VOLUME 99 fL (80-96); MONOCYTES # (AUTO) 1.7 /CMM (0.1-1.30); MONOCYTES % (AUTO) 22.3 % (2.0-12.0); NEUTROPHILS # (AUTO) 4.2 /CMM (1.8-8.9); NEUTROPHILS % (AUTO) 54.2 % (43.0-81.0); PHOSPHORUS 4.2 mg/dL (2.5-4.9); PLATELET COUNT (AUTO) 404 /CMM (150-450); RED BLOOD CELL COUNT(AUTO) 3.25 MIL/uL (4.5-6.0); WHITE BLOOD COUNT (AUTO) 7.8 K/uL (4.3-11.0)
--- NOTE | 2018-05-06 07:40 | NUR ---
MS/RN OPENING NOTE PATIENT IN BED IN STABLE CONDITION. A/O X 3. NO SIGNS OF ACUTE DISTRESS. NO COMPLAIN OF PAIN OR DISCOMFORT AT THIS TIME. ALL NEEDS ATTENDED TO. CALL LIGHT WITHIN REACH. WILL CONTINUE TO MONITOR TO ENSURE SAFETY.
[2018-05-06 08:00] VITALS: BP 136/60
[2018-05-06] MEDS: HYDROMORPHONE INJ 2 MG/ML DISP.SYRIN IV PRN ×3 (08:30→20:48)
[2018-05-06] MEDS: FOLIC ACID 1 MG TABLET PO SCH (08:30)
[2018-05-06] MEDS: PANTOPRAZOLE 40 MG TABLET.DR PO SCH (08:30)
[2018-05-06] MEDS: BENAZEPRIL HCL 10 MG TABLET PO SCH (08:30)
[2018-05-06] MEDS: GABAPENTIN 300 MG CAPSULE PO SCH ×3 (08:30→16:49)
[2018-05-06] MEDS: LACTOBACILLUS RHAMNOSUS GG 1 EACH CAP.SPRINK PO SCH ×2 (08:30→16:49)
[2018-05-06] MEDS: THIAMINE HCL 100 MG TABLET PO SCH (08:30)
[2018-05-06] MEDS: DOCUSATE SODIUM 100 MG CAPSULE PO SCH ×2 (08:30→16:49)
[2018-05-06] MEDS: AMLODIPINE BESYLATE 5 MG TABLET PO SCH (08:30)
[2018-05-06 09:46] LABS: EOSINOPHILS % (MANUAL) 1 % (0-4); LYMPHOCYTES % (MANUAL) 23 % (16-48); MONOCYTES % (MANUAL) 10 % (0-11.0); NEUTROPHILS % (MANUAL) 66 (42-76)
--- NOTE | 2018-05-06 10:08 | NUR ---
MS RN CAME TO WASTE DILAUDID,1.5 MG WASTED W/ OTHER RN, SPOKE WITH MOLLY ,PHARMACYST, AGREED TO MAKE ADDENDUM TO MY NOTES.
[2018-05-06 16:00] VITALS: BP 146/66
--- NOTE | 2018-05-06 18:32 | NUR ---
MS/RN CLOSING NOTE PATIENT IN BED IN STABLE CONDITION. A/O X 3. NO SIGNS OF ACUTE DISTRESS. NO COMPLAIN OF PAIN OR DISCOMFORT. ALL NEEDS ATTENDED TO. CALL LIGHT WITHIN REACH. WILL ENDORSE TO NEXT SHIFT FOR CONTINUITY OF CARE.
--- NOTE | 2018-05-06 19:05 | NUR ---
CHACHA MS NOTES RECEIVED PATIENT IN BED AWAKE ALERT AND ORIENTED X3 , RESPIRATIONS EVEN AND UNLABORED WITH EQUAL RISE AND FALL OF CHEST, DENIES ANY PAIN OR DISCOMFORT AT THIS TIME, URINAL AT BEDSIDE AND OFFERED, SAFETY PRECAUTIONS IN PLACE, LOW BED AND LOCKED, FALL PRECAUTIONS IN PLACE, BED ALARM IN PLACE, ORIENTED TO CALL LIGHT AND KEPT WITHIN REACH, ORIENTED TO STAFF. RIGHT UPPER ARM MIDLINE INTACT AND PATENT, DRESSING REMAINS CLEAN DRY AND INTACT, IVF RUNNING ORDERED. ALL NEEDS ATTENDED AT THIS TIME, WILL CONTINUE TO MONITOR AND ADDRESS NEEDS, REMAINS COMFORTABLE AT THIS TIME. Addendum: 05/07/18 at 0222 by RAMON PHILLIPS RN CLARIFICATION -RN MS OPENING NOTES
[2018-05-06 20:00] VITALS: BP 135/63
--- NOTE | 2018-05-06 20:48 | NUR ---
RN MS NOTES PATIENT COMPLAINT OF PAIN TO RIGHT HIP 02/01 REQUESTING FOR DILAUDID VS TAKEN WNL 135/63,81,20,99%RA DILAUDID 0.5MG/0.25ML GIVEN ORDERED REST WASTED VERIFIED WITH ANOTHER RN WILL CONTINUE TO MONITOR FOR EFFECTIVENESS. REPOSITIONING OFFERED. PATIENT PREFERS TO LAY ON RIGHT SIDE.
[2018-05-06] MEDS: ACETAMINOPHEN 325 MG TABLET PO PRN (22:01)
--- NOTE | 2018-05-06 22:01 | NUR ---
RN MS NOTES PATIENT STATES "DILAUDID HELPS BUT STILL PAIN." UNABLE TO ADMINISTER NORCO AT THIS TIME DUE TO SCHEDULING NORCO INTACT RETURNED WITH RECEIPT,VERIFIED WITH ANOTHER RN TYLENOL OFFERED PATIENT AGREED TO TAKE TYLENOL FOR NOW 650MG PRN GIVEN ORDERED. WILL CONTINUE TO MONITOR AND OFFER REPOSITIONING.
[2018-05-06] MEDS: *INSULIN REGULAR(HUMULIN R)HUM 100 UNIT/ML VIAL SQ PRN (22:04)
[2018-05-06] MEDS: INSULIN GLARGINE, 100 UNIT/ML CARTRIDGE SQ SCH (22:06)
--- NOTE | 2018-05-06 23:53 | NUR ---
RN MS NOTES PATIENT COMPLAINT OF PAIN TO RIGHT HIP STATES "11/01" REQUESTING FOR NORCO VS ASSESSED WNL 137/56,87,18,99% NORCO 10/325MG GIVEN ORDERED PATIENT REPOSITIONED WILL CONTINUE TO MONITOR FOR EFFECTIVENESS
[2018-05-07] MEDS: HYDROMORPHONE INJ 2 MG/ML DISP.SYRIN IV PRN ×5 (03:57→22:04)
--- NOTE | 2018-05-07 03:57 | NUR ---
CHACHA MS NOTES PATIENT COMPLAINT OF PAIN TO RIGHT LEG,HIP AREA REQUESTING FOR PAIN MEDICATION DILAUDID OFFERED PATIENT AGREED VS TAKEN WNL 141/67.86.18.98%RA DILAUDID 0.25ML/0.5MG GIVEN ORDERED REST WASTED VERIFIED WITH ANOTHER RN Addendum: 05/07/18 at 0407 by RAMON PHILLIPS RN 0.75ML WASTED WITH ANOTHER CHACHA
[2018-05-07] MEDS: IV NS 0.9% 1,000 ML IV PRN (06:22)
[2018-05-07] MEDS: INSULIN REGULAR, HUMAN 100 UNIT/ML 3 ML VIAL SQ PRN ×4 (06:22→21:51)
[2018-05-07] MEDS: HYDROCODONE/APAP 10/325MG 1 EA TABLET PO PRN ×4 (06:29→22:12)
[2018-05-07] MEDS: BLOOD SUGAR DIAGNOSTIC 1 EACH STRIP VI SCH ×4 (06:31→22:12)
--- NOTE | 2018-05-07 06:33 | NUR ---
RN MS NOTES PATIENT COMPLAINT OF PAIN TO RIGHT HIP 8-01/02 REQUESTING FOR PAIN MEDICATION NORCO 10/325MG OFFERED AGREED. VS TAKEN WNL 142/60,81,18,98% NORCO PRN GIVEN ORDERED.
--- NOTE | 2018-05-07 07:02 | NUR ---
RN MS CLOSING NOTES PATIENT IN BED AWAKE ALERT AND ORIENTED X3 , RESPIRATIONS EVEN AND UNLABORED WITH EQUAL RISE AND FALL OF CHEST, DENIES ANY PAIN OR DISCOMFORT AT THIS TIME, URINAL AT BEDSIDE AND OFFERED, SAFETY PRECAUTIONS IN PLACE, LOW BED AND LOCKED, FALL PRECAUTIONS IN PLACE, BED ALARM IN PLACE, CALL LIGHT KEPT WITHIN REACH, . RIGHT UPPER ARM MIDLINE INTACT AND PATENT, DRESSING REMAINS CLEAN DRY AND INTACT, IVF RUNNING ORDERED. ALL NEEDS ATTENDED AT THIS TIME, WILL CONTINUE TO MONITOR AND ADDRESS NEEDS, REMAINS COMFORTABLE AT THIS TIME AND ENDORSE TO NEXT SHIFT.
--- NOTE | 2018-05-07 07:27 | NUR ---
MS RN OPENING NOTES RECEIVED PT AWAKE IN BED IN NO ACUTE SIGNS OF DISTRESS. A/O X 3. ABLE TO MAKE NEEDS KNOWN AND VERBALIZED THAT PAIN IS TOLERABLE AT THIS TIME. ON ROOM AIR, BREATHING EVEN AND UNLABORED. CORNELIO MIDLINE INTACT AND PATENT WITH IVF OF NS @75ML/HR INFUSING WELL. SAFETY AND FALL PRECAUTIONS IN PLACE. BED IN LOWEST LOCKED POSITION, BED ALARM ON, CALL LIGHT WITHIN REACH AND B/L UPPER SIDE RAILS UP. URINAL AT BEDSIDE. WILL CONTINUE TO MONITOR.
[2018-05-07] MEDS: PANTOPRAZOLE 40 MG TABLET.DR PO SCH (07:37)
[2018-05-07 07:45] LABS: BASOPHILS # (AUTO) 0.1 /CMM (0.0-0.2); BASOPHILS % (AUTO) 1.2 % (0.0-2.0); EOSINOPHILS % (AUTO) 2.9 % (0.0-6.0); HEMATOCRIT 33 % (39-51); HEMOGLOBIN 11.2 g/dL (13.5-17.5); LYMPHOCYTES # (AUTO) 2.1 /CMM (0.8-4.8); LYMPHOCYTES % (AUTO) 22.1 % (20.0-44.0); MEAN CORPUSCULAR HGB CONC 33 g/dl (31.0-36.0); MEAN CORPUSCULAR VOLUME 98 fL (80-96); MONOCYTES # (AUTO) 1.9 /CMM (0.1-1.30); MONOCYTES % (AUTO) 19.9 % (2.0-12.0); NEUTROPHILS # (AUTO) 5.1 /CMM (1.8-8.9); NEUTROPHILS % (AUTO) 53.9 % (43.0-81.0); PLATELET COUNT (AUTO) 439 /CMM (150-450); RED BLOOD CELL COUNT(AUTO) 3.41 MIL/uL (4.5-6.0); WHITE BLOOD COUNT (AUTO) 9.4 K/uL (4.3-11.0)
[2018-05-07 08:00] VITALS: BP 143/72
[2018-05-07 08:05] LABS: CALCIUM, SERUM 9.2 mg/dL (8.5-10.1); CREATININE 0.6 mg/dL (0.6-1.3); PHOSPHORUS 4.5 mg/dL (2.5-4.9)
[2018-05-07 08:07] LABS: MAGNESIUM 1.1 mg/dL (1.8-2.4)
--- NOTE | 2018-05-07 08:24 | NUR ---
RN NOTES RECEIVED CALL FROM LAB THAT PT HAS LOW MG 1.1, PRO CHEN ON UNIT AND MADE AWRE WITH ORDER TO GIVE MG 4GM IVPB. WILL CONTINUE TO MONITOR
[2018-05-07] MEDS ORDERED: Magnesium 1GM/D5W 100ML PREMIX PIGGYBACK IV ONE (08:30)
[2018-05-07] MEDS: GABAPENTIN 300 MG CAPSULE PO SCH ×3 (08:32→17:21)
[2018-05-07] MEDS: BENAZEPRIL HCL 10 MG TABLET PO SCH (08:33)
[2018-05-07] MEDS: FOLIC ACID 1 MG TABLET PO SCH (08:33)
[2018-05-07] MEDS: THIAMINE HCL 100 MG TABLET PO SCH (08:33)
[2018-05-07] MEDS: AMLODIPINE BESYLATE 5 MG TABLET PO SCH (08:34)
[2018-05-07] MEDS: LACTOBACILLUS RHAMNOSUS GG 1 EACH CAP.SPRINK PO SCH ×2 (08:34→17:22)
[2018-05-07] MEDS: DOCUSATE SODIUM 100 MG CAPSULE PO SCH ×2 (08:34→17:22)
[2018-05-07 08:36] LABS: BAND % (MANUAL) 4 % (0.0-5.0); BASOPHILS % (MANUAL) 1 % (0.0-2.0); EOSINOPHILS % (MANUAL) 6 % (0-4); LYMPHOCYTES % (MANUAL) 15 % (16-48); MONOCYTES % (MANUAL) 20 % (0-11.0); NEUTROPHILS % (MANUAL) 54 (42-76)
--- NOTE | 2018-05-07 08:38 | NUR ---
RN NOTES/PAIN MANAGEMENT PATIENT NOTED MOANING AND GRIMACING WITH COMPLAINED OF PAIN ON HIS RIGHT HIP AND LEG WITH SCALE OF 8/10, PRN DILAUDID 0.5MG/0.25ML IVP GIVEN AT 0830. WILL CONTINUE TO MONITOR AND REASSESS PT.
[2018-05-07] MEDS: Magnesium 1GM/D5W 100ML PREMIX 100 ML IV SCH ×4 (09:35→13:12)
--- NOTE | 2018-05-07 14:39 | NUR ---
RN NOTES/PAIN MANAGEMENT PATIENT RESTLESS AND GRIMACING IN PAIN WITH COMPLAINED OF RIGHT HIP AND LEG PAIN WITH SCALE OF 6/10, PRN NORCO 10/325 MG PO GIVEN AT 1435. WILL CONTINUE TO MONITOR AND REASSESS PT.
[2018-05-07 15:50] VITALS: BP 144/63
--- NOTE | 2018-05-07 17:34 | NUR ---
RN NOTES/PAIN MANAGEMENT PATIENT COMPLAINED OF PAIN ON HIS RIGHT HIP AND LEG WITH SCALE OF 10/10, BP 140/64MMHG. PRN DILAUDID 0.5MG/0.25ML IVP GIVEN AT 1723. WILL CONTINUE TO MONITOR AND REASSESS PT.
--- NOTE | 2018-05-07 18:48 | NUR ---
MS RN CLOSING NOTES PT IN BED AWAKE, ALERT AND ORIENTED X 3. COMPLIANT AND ABLE TO VOICED OUT NEEDS. ON ROOM AIR, TOLERATING WELL WITH NO ACUTE RESPIRATORY DISTRESS NOTED THROUGHOUT THE DAY. PT FOR ORIF OF RIGHT FEMUR TOMORROW, NPO TO BE ENFORCED POST MIDNIGHT. CORNELIO MIDLINE INTACT AND PATENT WITH IVF OF NS @75ML/HR INFUSING WELL. ALL NEEDS NAD CARE ATTENDED WELL. SAFETY AND FALL PRECAUTIONS IN PLACE. BED IN LOWEST LOCKED POSITION, BED ALARM ON, CALL LIGHT WITHIN REACH AND B/L UPPER SIDE RAILS UP. URINAL AT BEDSIDE. WILL ENDORSE TO TERRITORY MANAGER NURSE FOR MAX..
[2018-05-07 20:08] VITALS: BP 151/93
--- NOTE | 2018-05-07 21:30 | NUR ---
NURSING ASSESSMENT: LYING IN BED hob UP A/O X4 ON R/A R HIP AND FALL PRECAUTIONS N.S. 0.9% INFUSING 2 75 CC HER TO RIGHT UPPER MID LINE WITHIN DIFFICULTY. BLOOD SUGAR ELEVATED GIVEN HIS LANTUS AND REGULAR INSULIN PER PROTOCOL DAMARISEN HS SNACK EGG SANDWICH WITH CRANBERRY JUICE ATE 75%. c/O INSOMONIA GIVEN AMBIEN 5 MG. ADVISED NPO AFTER MIDNIGHT AND HUNG UP NPO SIGN ABOVE HIS BED. sIDERAILS UP cALL LIGHT WITHIN REACH BED IN LOWEST POSITION.
[2018-05-07] MEDS: INSULIN GLARGINE, 100 UNIT/ML CARTRIDGE SQ SCH (21:52)
[2018-05-07] MEDS: ZOLPIDEM TARTRATE 5 MG TABLET PO PRN (22:48)
[2018-05-08] VITALS (11 sets, daily range): BP systolic 127–161; BP diastolic 56–67
--- NOTE | 2018-05-08 00:08 | NUR ---
REMOVED ALL FOOD AND FLUIDS FROM PT ROOM EYES CLOSED REP EVEN AND UNLAB APPEARS RESTING COMFORTABLY. SIDERAILS UP CALL LIGHT WITHIN REACH. iV CONT TO INFUSE WITH DIFFICULTY.
[2018-05-08] MEDS: HYDROMORPHONE INJ 2 MG/ML DISP.SYRIN IV PRN ×3 (02:27→20:55)
[2018-05-08] MEDS: BLOOD SUGAR DIAGNOSTIC 1 EACH STRIP VI SCH ×4 (05:44→21:57)
--- NOTE | 2018-05-08 05:53 | NUR ---
Closing Note: Blood Sugar this am 177 no coverage given Pt NPO for surgery. Part preop checklist completed. Surg Consent signed. Labs drawn. Hide Handler nurse unable to draw blood from midline. C/o 7-10 right hip pain. Grover Medellin notified. Siderails up Call light within reach.
[2018-05-08 06:04] LABS: BASOPHILS # (AUTO) 0.1 /CMM (0.0-0.2); BASOPHILS % (AUTO) 1.1 % (0.0-2.0); EOSINOPHILS % (AUTO) 2.8 % (0.0-6.0); HEMATOCRIT 33 % (39-51); HEMOGLOBIN 11.1 g/dL (13.5-17.5); LYMPHOCYTES # (AUTO) 1.4 /CMM (0.8-4.8); LYMPHOCYTES % (AUTO) 16.8 % (20.0-44.0); MEAN CORPUSCULAR HGB CONC 34 g/dl (31.0-36.0); MEAN CORPUSCULAR VOLUME 97 fL (80-96); MONOCYTES # (AUTO) 1.4 /CMM (0.1-1.30); MONOCYTES % (AUTO) 16.2 % (2.0-12.0); NEUTROPHILS # (AUTO) 5.3 /CMM (1.8-8.9); NEUTROPHILS % (AUTO) 63.1 % (43.0-81.0); PLATELET COUNT (AUTO) 458 /CMM (150-450); RED BLOOD CELL COUNT(AUTO) 3.34 MIL/uL (4.5-6.0); WHITE BLOOD COUNT (AUTO) 8.4 K/uL (4.3-11.0)
[2018-05-08 06:13] LABS: CALCIUM, SERUM 9.2 mg/dL (8.5-10.1); CREATININE 0.6 mg/dL (0.6-1.3); MAGNESIUM 1.3 mg/dL (1.8-2.4); POTASSIUM 3.6 mmol/L (3.5-5.1)
[2018-05-08] MEDS: PANTOPRAZOLE 40 MG TABLET.DR PO SCH (07:30)
--- NOTE | 2018-05-08 07:56 | NUR ---
MS RN NOTES PATIENT RECEIVED RESTING INSIDE ROOM. AWAKE, ALERT AND ORIENTED, VERBALLY RESPONSIVE AND RESPONDS TO VERBAL AND TACTILE STIMULI. NO ACUTE DISTRESS, PATIENT DENIES ANY PAIN OR DISCOMFORT. NO CHANGES IN LOC NOTED. PATIENT NPO SINCE MIDNIGHT. FOR RIGHT FEMUR ORIF TODAY. CONSENTS SIGNED, SURGICAL CHECKLIST DONE. PATIENT AWARE OF PROCEDURE TODAY. IVF INFUSING ON CORNELIO MIDLINE. WILL CONTINUE TO MONITOR. BED LOCKED AND IN LOW POSITION. BILATERAL UPPER SIDE RAILS UP AND LOCKED. CALL LIGHT WITHIN EASY REAHC
[2018-05-08 08:15] LABS: EOSINOPHILS % (MANUAL) 4 % (0-4); LYMPHOCYTES % (MANUAL) 18 % (16-48); MONOCYTES % (MANUAL) 20 % (0-11.0); NEUTROPHILS % (MANUAL) 58 (42-76)
[2018-05-08] MEDS: FOLIC ACID 1 MG TABLET PO SCH (08:43)
[2018-05-08] MEDS: LACTOBACILLUS RHAMNOSUS GG 1 EACH CAP.SPRINK PO SCH ×2 (08:43→16:23)
[2018-05-08] MEDS: DOCUSATE SODIUM 100 MG CAPSULE PO SCH ×2 (08:43→16:23)
[2018-05-08] MEDS: BENAZEPRIL HCL 10 MG TABLET PO SCH (08:43)
[2018-05-08] MEDS: THIAMINE HCL 100 MG TABLET PO SCH (08:43)
[2018-05-08] MEDS: GABAPENTIN 300 MG CAPSULE PO SCH ×3 (08:43→16:23)
[2018-05-08] MEDS: AMLODIPINE BESYLATE 5 MG TABLET PO SCH (08:43)
--- NOTE | 2018-05-08 10:40 | NUR ---
MS RN NOTES PATIENT LEFT UNIT VIA HOSPITAL BED. TRANSFERRED TO OR FOR RIGHT FEMUR ORIF. LEFT IN STABLE CONDITION.
[2018-05-08] MEDS ORDERED: MIDAZOLAM HCL 2 MG/2ML VIAL ONE (11:07)
[2018-05-08] MEDS ORDERED: FENTANYL PF 100MCG/2ML AMPUL ONE ×2 (11:07→13:37)
[2018-05-08] MEDS ORDERED: Magnesium 1GM/D5W 100ML PREMIX 100 ML IV SCH (11:30)
[2018-05-08] MEDS ORDERED: BACITRACIN 50000 UNITS/VIAL ONE ×2 (12:02→12:21)
[2018-05-08] MEDS ORDERED: BUPIVACAINE 0.5 % PF 150 MG/30 ML VIAL ONE ×2 (12:04→12:05)
[2018-05-08] MEDS ORDERED: HYDROMORPHONE INJ 2 MG/ML DISP.SYRIN ONE (14:40)
[2018-05-08] MEDS ORDERED: MEPERIDINE HCL/PF 100 MG/ML DISP.SYRIN ONE (15:07)
[2018-05-08 15:40] LABS: BASOPHILS # (AUTO) 0.1 /CMM (0.0-0.2); BASOPHILS % (AUTO) 0.4 % (0.0-2.0); EOSINOPHILS % (AUTO) 0.4 % (0.0-6.0); HEMATOCRIT 34 % (39-51); HEMOGLOBIN 11.2 g/dL (13.5-17.5); LYMPHOCYTES # (AUTO) 1.3 /CMM (0.8-4.8); LYMPHOCYTES % (AUTO) 6.5 % (20.0-44.0); MEAN CORPUSCULAR HGB CONC 33 g/dl (31.0-36.0); MEAN CORPUSCULAR VOLUME 97 fL (80-96); MONOCYTES % (AUTO) 10.2 % (2.0-12.0); NEUTROPHILS # (AUTO) 15.9 /CMM (1.8-8.9); NEUTROPHILS % (AUTO) 82.5 % (43.0-81.0); PLATELET COUNT (AUTO) 456 /CMM (150-450); RED BLOOD CELL COUNT(AUTO) 3.52 MIL/uL (4.5-6.0); WHITE BLOOD COUNT (AUTO) 19.3 K/uL (4.3-11.0)
[2018-05-08 15:47] LABS: CALCIUM, SERUM 8.5 mg/dL (8.5-10.1); CREATININE 0.8 mg/dL (0.6-1.3)
--- NOTE | 2018-05-08 16:05 | NUR ---
MS RN NOTES PATIENT BROUGHT BACK TO UNIT VIA HOSPITAL BED. ACCOMPANIED BY 2 RN'S. REPORT RECEIVED FROM SIENA BURNHAM. PATIENT AWAKE, ALERT AND ORIENTED X 3, SLEEPY, VERBALLY RESPONSIVE AND RESPONDS TO VERBAL AND TACTILE STIMULI. SCD IN PLACE ON LLE. TORRES CATHETER IN PLACE WITH YELLOW URINE OUTPUT. DRESSING IN PLACE ON RLE FROM MID THIGH TO CALF. NO S/S OF ACTIVE BLEEDING NOTED. PER RN REPORT, PATIENT RECEIVED 1 UNIT OF BLOOD AT THE OR 2 BLEEDING. PATIENT WITH ORDERS FROM DR. DAVILA, NOTED AND CARRIED OUT. PATIENT MADE AWARE AND VERBALIZED UNDERSTANDING. WILL CONTINUE TO MONITOR
[2018-05-08] MEDS: Magnesium 1GM/D5W 100ML PREMIX 100 ML IV SCH ×4 (16:24→19:41)
[2018-05-08] MEDS: INSULIN REGULAR, HUMAN 100 UNIT/ML 3 ML VIAL SQ PRN ×2 (17:38→22:02)
--- NOTE | 2018-05-08 18:56 | NUR ---
MS RN NOTES PATIENT RESTING INSIDE ROOM. SLEEPING, EASILY AROUSABLE THROUGH VERBAL AND TACTILE STIMULI. BREATHING EVEN AND UNLABORED. NO ACUTE DISTRESS NOTED. DENIES ANY PAIN OR DISCOMFORT. IVF INFUSING WELL. PATIENT KEPT CLEAN AND DRY. TORRES CATHETER DRAINING WELL. WILL ENDORSE TO INCOMING SHIFT FOR MAX. BED LOCKED AND IN LOW POSITION. BILATERAL UPPER SIDE RAILS UP AND LOCKED. CALL LIGHT WITHIN EASY REACH
--- NOTE | 2018-05-08 19:00 | NUR ---
MS RN OPENING NOTES Received patient A/O X3, awake on bed on Poe's position RLE wrapped with bandage, elevated with pillows. On severe pain, S/P R lower femur ORIF. Explained to patient that pain meds can only be given in due time. Encouraged patient to use nonpharmacologic therapy but patient refused. Patient with patent indwelling FC with clear yellow urine output noted. FC to be D/C 1 day S/P surgery. Afebrile. Kept bed low and locked, call light at bedside. Will continue to monitor accordingly.
[2018-05-08] MEDS: VANCOMYCIN 1 GM in IV D5W 250 ML IV SCH (19:41)
[2018-05-08] MEDS: HYDROCODONE/APAP 10/325MG 1 EA TABLET PO PRN (19:41)
[2018-05-08] MEDS: IV NS 0.9% 1,000 ML IV PRN (19:46)
[2018-05-08] MEDS ORDERED: ANCEF 1 GM/50 ML D5W IV SCH ×2 (20:00)
[2018-05-08] MEDS: INSULIN GLARGINE, 100 UNIT/ML CARTRIDGE SQ SCH (22:00)
[2018-05-08] MEDS: ZOLPIDEM TARTRATE 5 MG TABLET PO PRN (22:03)
[2018-05-09] MEDS: HYDROMORPHONE INJ 2 MG/ML DISP.SYRIN IV PRN ×4 (01:22→20:27)
[2018-05-09] MEDS: HYDROCODONE/APAP 10/325MG 1 EA TABLET PO PRN ×3 (02:00→19:25)
--- NOTE | 2018-05-09 05:45 | NUR ---
MS RN NOTES Patient refused for linen change. Per visual inspection patient is clean. Kept on bed in comfortable position. Patient refused repositioning RLE. Patient asked for Diluadid, explained to patient the timing and when is the next due of medication. Patient did not insist but disappointed. Vital signs remained stable. Will continue to monitor accordingly.
[2018-05-09] MEDS: ACETAMINOPHEN 325 MG TABLET PO PRN (06:19)
[2018-05-09] MEDS: BLOOD SUGAR DIAGNOSTIC 1 EACH STRIP VI SCH ×4 (06:32→21:29)
--- NOTE | 2018-05-09 06:46 | NUR ---
MS RN CLOSING Patient on bed, A/O x3, with patent CORNELIO midline with NS infusing well @ 75ml/hr. With FC indwelling well @ 75 ml/hr as ordered. With RLE dressing clean, dry and intact, kept elevated with pillows. On constant severe pain, medicated periodically, unrelieved by Dilaudid and [place]. No NSAIDs per surgeon order. Magnesium - 1.6: replaced with 4 bags. For repeat Mag level this AM. Repositioned Q2h and PRN. All due meds given as ordered. Afebrile the whole shift. No new complaints made. Endorsed to the next shift.
--- NOTE | 2018-05-09 07:23 | NUR ---
MS RN NOTES PATIENT RECEIVED RESTING INSIDE ROOM. AWAKE, ALERT AND ORIENTED, VERBALLY RESPONSIVE AND RESPONDS TO VERBAL AND TACTILE STIMULI. BREATHING EVEN AND UNLABORED. REPORTS PAIN BUT VERBALIZES UNDERSTANDING WHEN MEDICATION SCHEDULE WAS EXPLAINED. TORRES CATHETER IN PLACE WITH YELLOW URINE OUTPUT NOTED, TORRES CATHETER TO BE REMOVED TODAY ORDERED BY DR. DAVILA, PATIENT AWARE AND VERBALIZED UNDERSTANDING. WILL CONTINUE TO MONITOR. BED LOCKED AND IN LOW POSITION. BILATERAL UPPER SIDE RAILS UP AND LOCKED. CALL LIGHT WITHIN EASY REACH
[2018-05-09 08:00] VITALS: BP 144/57
[2018-05-09] MEDS: AMLODIPINE BESYLATE 5 MG TABLET PO SCH (08:14)
[2018-05-09] MEDS: LACTOBACILLUS RHAMNOSUS GG 1 EACH CAP.SPRINK PO SCH ×2 (08:14→17:27)
[2018-05-09] MEDS: FOLIC ACID 1 MG TABLET PO SCH (08:14)
[2018-05-09] MEDS: GABAPENTIN 300 MG CAPSULE PO SCH ×3 (08:14→17:27)
[2018-05-09] MEDS: THIAMINE HCL 100 MG TABLET PO SCH (08:14)
[2018-05-09] MEDS: ENOXAPARIN SODIUM 40 MG/0.4 ML DISP.SYRIN SQ SCH (08:14)
[2018-05-09] MEDS: BENAZEPRIL HCL 10 MG TABLET PO SCH (08:14)
[2018-05-09] MEDS: PANTOPRAZOLE 40 MG TABLET.DR PO SCH (08:14)
[2018-05-09] MEDS: DOCUSATE SODIUM 100 MG CAPSULE PO SCH ×2 (08:14→17:27)
[2018-05-09] MEDS: VANCOMYCIN 1 GM in IV D5W 250 ML IV SCH (08:17)
[2018-05-09 08:48] LABS: CALCIUM, SERUM 8.8 mg/dL (8.5-10.1); CREATININE 0.7 mg/dL (0.6-1.3); MAGNESIUM 1.4 mg/dL (1.8-2.4); POTASSIUM 3.7 mmol/L (3.5-5.1)
[2018-05-09 08:53] LABS: BASOPHILS # (AUTO) 0.1 /CMM (0.0-0.2); BASOPHILS % (AUTO) 0.4 % (0.0-2.0); EOSINOPHILS % (AUTO) 0.1 % (0.0-6.0); HEMATOCRIT 30 % (39-51); HEMOGLOBIN 10.3 g/dL (13.5-17.5); LYMPHOCYTES # (AUTO) 1.1 /CMM (0.8-4.8); MEAN CORPUSCULAR HGB CONC 34 g/dl (31.0-36.0); MEAN CORPUSCULAR VOLUME 95 fL (80-96); MONOCYTES # (AUTO) 3.1 /CMM (0.1-1.30); MONOCYTES % (AUTO) 18.8 % (2.0-12.0); NEUTROPHILS % (AUTO) 73.7 % (43.0-81.0); PLATELET COUNT (AUTO) 415 /CMM (150-450); WHITE BLOOD COUNT (AUTO) 16.4 K/uL (4.3-11.0)
[2018-05-09] MEDS: Magnesium 1GM/D5W 100ML PREMIX 100 ML IV SCH ×8 (09:44→16:14)
[2018-05-09] MEDS ORDERED: Magnesium 1GM/D5W 100ML PREMIX 100 ML IV SCH (10:30)
--- NOTE | 2018-05-09 11:33 | NUR ---
WOUND CARE CONSULT: PT PRESENTS WITH INTACT SKIN, TORRES CATH NOTED AND DEFORMITY TO LEFT LOWER LEG NOTED FROM OLD FRACTURE. RT LEG NOTED TO BE CONTRACTED WITH SURGICAL DRESSING INTACT. DEFER TO ORTHO FOR RT LEG. WILL SEE PRN. ALL SKIN PROTECTION MEASURES IN PLACE AND DISCUSSED WITH NURSING STAFF.
[2018-05-09] MEDS: INSULIN REGULAR, HUMAN 100 UNIT/ML 3 ML VIAL SQ PRN ×2 (11:50→17:28)
--- NOTE | 2018-05-09 11:53 | NUR ---
MS RN NOTES PATIENT WITH REPLACEMENT ORDER FOR MAGNESIUM 1G IV X 4 BAGS, SEEN AND EXAMINED BY DR. LOJA. WITH NEW ORDER TO INCREASE MAGNESIUM FROM 4 BAGS TO 6 BAGS TOTAL. INFORMED PHARMACY. WILL CONTINUE TO MONITOR
[2018-05-09] MEDS: TRAMADOL HCL 50 MG TABLET PO SCH ×2 (11:58→17:27)
[2018-05-09 16:00] VITALS: BP 163/72
--- NOTE | 2018-05-09 17:52 | NUR ---
MS RN NOTES PATIENT SEEN AND EXAMINED BY ADIN KRUSE. NO DRESSING CHANGE ON RLE AT THIS TIME. WILL RE-EVAL IN AM. PATIENT AWARE AND VERBALIZED UNDERSTANDING. WILL CONTINUE TO MONITOR
--- NOTE | 2018-05-09 18:33 | NUR ---
MS RN NOTES PATIENT RESTING INSIDE ROOM. AWAKE, ALERT AND ORIENTED, VERBALLY RESPONSIVE AND RESPONDS TO VERBAL AND TACTILE STIMULI. BREATHING EVEN AND UNLABORED. NO ACUTE DISTRESS. DENIES ANY PAIN OR DISCOMFORT AT THIS TIME. TORRES CATHETER REMOVED TODAY, (+) URINE OUTPUT. PATIENT ABLE TO USE URINAL. RLE DRESSING IN PLACE. NO ACTIVE BLEEDING OR DRAINAGE NOTED AT THIS TIME. WILL ENDORSE TO INCOMING SHIFT MAX. BED LOCKED AND IN LOW POSITION. BILATERAL UPPER SIDE RAILS UP AND LOCKED. CALL LIGHT WITHIN EASY REACH
--- NOTE | 2018-05-09 19:25 | NUR ---
RN INITIAL NOTES PATIENT RECEIVED IN BED, ALERT, ORIENTED X 3. BREATHING EVEN AND UNLABORED. COMPLAINING OF PAIN ON RIGHT KNEE, 11/01, NORCO 10 GIVEN ORDERED. DRESSING ON RLE IN PLACE, CLEAN AND INTACT. CALL BAILEY WITHIN REACH. BED IN LOW, LOCKED POSITION. WILL CONTINUE TO MONITOR ACCORDINGLY
[2018-05-09 20:00] VITALS: BP 145/61
--- NOTE | 2018-05-09 20:28 | NUR ---
RN NOTES PATIENT STILL C/O PAIN ON RIGHT KNEE, STATED NORCO DIDN'T WORK. DILAUDID 0.5MG GIVEN ORDERED.
[2018-05-09] MEDS: INSULIN GLARGINE, 100 UNIT/ML CARTRIDGE SQ SCH (21:31)
[2018-05-09] MEDS: *INSULIN REGULAR(HUMULIN R)HUM 100 UNIT/ML VIAL SQ PRN (21:31)
[2018-05-09] MEDS: ZOLPIDEM TARTRATE 5 MG TABLET PO PRN (21:50)
[2018-05-10] MEDS: TRAMADOL HCL 50 MG TABLET PO SCH ×3 (00:17→12:14)
[2018-05-10] MEDS: HYDROMORPHONE INJ 2 MG/ML DISP.SYRIN IV PRN ×2 (02:25→10:18)
--- NOTE | 2018-05-10 02:28 | NUR ---
RN NOTES PATIENT C/O R KNEE PAIN AND LOWER BACK PAIN, 11/01. DILAUDID 0.5 MG GIVEN ORDERED. THE REST WASTED WITH ANOTHER RN
[2018-05-10] MEDS: BLOOD SUGAR DIAGNOSTIC 1 EACH STRIP VI SCH ×2 (06:30→11:47)
[2018-05-10] MEDS: INSULIN REGULAR, HUMAN 100 UNIT/ML 3 ML VIAL SQ PRN ×2 (06:34→12:25)
--- NOTE | 2018-05-10 06:41 | NUR ---
MS RN CLOSING NOTES PATIENT SLEEPING IN BED, BUT EASILY AROUSABLE. BREATHING EVEN AND UNLABORED. NO COMPLAINTS OF PAIN OF THIS TIME. RIGHT UPPER ARM MIDLINE INTACT AND PATENT. ALL NEEDS ATTENDED TO. ALL DUE MEDICATIONS GIVEN ORDERED. CALL BAILEY WITHIN REACH. BED IN LOW, LOCKED POSITION. WILL ENDORSE MAX TO ONCOMING RN
[2018-05-10 07:33] LABS: BASOPHILS # (AUTO) 0.1 /CMM (0.0-0.2); BASOPHILS % (AUTO) 0.5 % (0.0-2.0); EOSINOPHILS % (AUTO) 0.1 % (0.0-6.0); HEMATOCRIT 29 % (39-51); HEMOGLOBIN 9.5 g/dL (13.5-17.5); LYMPHOCYTES # (AUTO) 1.2 /CMM (0.8-4.8); LYMPHOCYTES % (AUTO) 7.2 % (20.0-44.0); MEAN CORPUSCULAR HGB CONC 33 g/dl (31.0-36.0); MEAN CORPUSCULAR VOLUME 95 fL (80-96); MONOCYTES # (AUTO) 3.4 /CMM (0.1-1.30); NEUTROPHILS # (AUTO) 11.6 /CMM (1.8-8.9); NEUTROPHILS % (AUTO) 71.2 % (43.0-81.0); PLATELET COUNT (AUTO) 378 /CMM (150-450); RED BLOOD CELL COUNT(AUTO) 3.02 MIL/uL (4.5-6.0); WHITE BLOOD COUNT (AUTO) 16.3 K/uL (4.3-11.0)
[2018-05-10 07:43] LABS: CALCIUM, SERUM 9.1 mg/dL (8.5-10.1); CREATININE 0.6 mg/dL (0.6-1.3); MAGNESIUM 1.5 mg/dL (1.8-2.4); PHOSPHORUS 3.1 mg/dL (2.5-4.9); POTASSIUM 3.6 mmol/L (3.5-5.1)
[2018-05-10 08:00] VITALS: BP 142/56
[2018-05-10 08:40] LABS: LYMPHOCYTES % (MANUAL) 6 % (16-48); MONOCYTES % (MANUAL) 11 % (0-11.0); NEUTROPHILS % (MANUAL) 83 (42-76)
[2018-05-10] MEDS: HYDROCODONE/APAP 10/325MG 1 EA TABLET PO PRN ×2 (09:00→14:58)
[2018-05-10] MEDS: THIAMINE HCL 100 MG TABLET PO SCH (10:29)
[2018-05-10] MEDS: LACTOBACILLUS RHAMNOSUS GG 1 EACH CAP.SPRINK PO SCH (10:29)
[2018-05-10] MEDS: FOLIC ACID 1 MG TABLET PO SCH (10:29)
[2018-05-10] MEDS: GABAPENTIN 300 MG CAPSULE PO SCH ×2 (10:30→14:59)
[2018-05-10] MEDS: AMLODIPINE BESYLATE 5 MG TABLET PO SCH (10:30)
[2018-05-10] MEDS: DOCUSATE SODIUM 100 MG CAPSULE PO SCH (10:30)
[2018-05-10] MEDS: PANTOPRAZOLE 40 MG TABLET.DR PO SCH (10:30)
[2018-05-10 10:31] VITALS: BP 142/56
[2018-05-10] MEDS: BENAZEPRIL HCL 10 MG TABLET PO SCH (10:31)
[2018-05-10] MEDS: ENOXAPARIN SODIUM 40 MG/0.4 ML DISP.SYRIN SQ SCH (10:33)
[2018-05-10] MEDS ORDERED: ENOX40DI SQ (10:47)
[2018-05-10] MEDS: Magnesium 1GM/D5W 100ML PREMIX 100 ML IV SCH ×2 (11:05→12:13)
--- NOTE | 2018-05-10 12:00 | NUR ---
mg replacement iv.
--- NOTE | 2018-05-10 13:30 | NUR ---
ortho pa in and ven[place] duplex ordered.
--- NOTE | 2018-05-10 14:30 | NUR ---
report of venous duplex texted to kendal blake for discharge.
--- NOTE | 2018-05-10 15:20 | NUR ---
med. x2 with norco and x1 with dilaudid.
--- NOTE | 2018-05-10 15:38 | NUR ---
refused discharge photos,midline iv removed rt. arm.pressure drsg applied.report to ambulance drivers.pt. transported to facility via ambulnce.report called to brianda at facility
== END 2018-05-10 15:45 | DRG 308 ==
LOC: MED 18:45
PROVIDERS: ADMIT Nurse Practitioner Acute Care; ATTEND Nurse Practitioner Acute Care
DX: S72.401A Unspecified fracture of lower end of right femur, initial encounter for closed fracture (principal); D68.59 Other primary thrombophilia; I11.9 Hypertensive heart disease without heart failure; E11.65 Type 2 diabetes mellitus with hyperglycemia; E83.42 Hypomagnesemia; W05.0XXA Fall from non-moving wheelchair, initial encounter; Y92.9 Unspecified place or not applicable; M17.11 Unilateral primary osteoarthritis, right knee; Z99.3 Dependence on wheelchair; Z79.4 Long term (current) use of insulin; Z79.899 Other long term (current) drug therapy; D63.8 Anemia in other chronic diseases classified elsewhere; F17.200 Nicotine dependence, unspecified, uncomplicated; D72.829 Elevated white blood cell count, unspecified; M16.11 Unilateral primary osteoarthritis, right hip; M85.80 Other specified disorders of bone density and structure, unspecified site
CPT/HCPCS: 36415; 36569; 71045-TC; 73552; 73560-TC; 73700-TC; 80048-TC; 80061-TC; 80202-TC; 81000-TC; 82962-TC; 83735-TC; 84100-TC; 85025-TC; 85610-TC; 85730-TC; 86850-TC; 86921-TC; 87040-TC; 87070-TC; 87081-TC; 89051-TC; 89060-TC; 93307-TC; 93970-TC; 93971-TC; 94799-TC; 97110-TC; 97112-TC; 97530-TC; A6402; A6403; C1713; G0378; J0690; J0696; J1170; J1650; J1815; J2175; J2250; J2370; J2704; J3010; J3370; J3475; J3490; J7030; J7050; J7060; P9016-BL; Q9967